=== PATIENT | female | born 1945 | race Caucasian/White ===

== ENCOUNTER 2018-06-06 10:25 | Emergency (ER) | payer OTHER ==
[~2018-06-06] VITALS: Ht 172.7 cm; Wt 61.0 kg
[2018-06-06 10:27] VITALS: Ht 172.7 cm; Wt 61.0 kg
[2018-06-06] MEDS ORDERED: LIDOCAINE/MYLANTA 40 ML BTL PO STA (11:22)
[2018-06-06] MEDS ORDERED: BELLADONNA/PHENOBARBITAL TAB PO STA (11:22)
[2018-06-06] MEDS ORDERED: ATOR20TA38 PO (11:33)
[2018-06-06] MEDS ORDERED: LOSA50TA14 PO (11:33)
[2018-06-06] MEDS ORDERED: CLON0.5T14 PO (11:33)
[2018-06-06] MEDS ORDERED: IOHEXOL 300MG/ML 150 ML BTL ONE (11:59)
[2018-06-06] MEDS ORDERED: SOD CHLORIDE 0.9% 100 ML ONE ×2 (11:59→12:00)
[2018-06-06] MEDS ORDERED: IOHEXOL 100 ML ONE (12:00)
--- NOTE | 2018-06-06 12:46 | ERD ---
ER Documentation Chief Complaint Chief Complaint Complains of abdominal pain since last night HPI This is a 73-year-old female who complains of burning epigastric pain onset last night. She has not eaten today yet. She says the pain is located in the upper stomach that is burning without radiation. No chest pain or shortness of breath. Patient says she is here because she is worried that she has an aortic dissection. The patient says she had a chest x-ray taken 2 weeks ago that showed a widened mediastinum. She has no pain in her back or abdomen below the epigastric region. No chest pain. No shortness of breath or dyspnea on exertion. No melena or nausea vomiting ROS All systems reviewed and are negative except as per history of present illness. Medications Home Meds Active Scripts Hydrocodone/Acetaminophen ([place] 10-325 Tablet) 1 Each Tablet, 1 TAB PO Q6H PRN for PAIN, #7 TAB Prov:PARTH MILES DO 06/06/18 Omeprazole* (Omeprazole*) 40 Mg Capsule.dr, 40 MG PO DAILY, #10 CAP Prov:PARTH MILES DO 06/06/18 Reported Medications Atorvastatin Calcium* (Atorvastatin Calcium*) 20 Mg Tablet, 20 MG PO QHS, #30 TAB 06/06/18 Clonazepam* (Clonazepam*) 0.5 Mg Tablet, 0.5 MG PO HS, TAB 06/06/18 Losartan Potassium* (Losartan Potassium*) 50 Mg Tablet, 50 MG PO DAILY, TAB 06/06/18 Allergies Allergies: Coded Allergies: No Known Allergy (Unverified , 06/06/18) PMhx/Soc Medical and Surgical Hx: pt denies Surgical Hx History of Surgery: No Hx Cardiac Disorders: Yes (HTN) Hx Miscellaneous Medical Probl: Yes (ARTHRITIS) Hx Alcohol Use: No Hx Substance Use: No Hx Tobacco Use: No Smoking Status: Never smoker FmHx Family History: No coronary disease Physical Exam Vitals Vital Signs Date Temp Pulse Resp B/P (MAP) Pulse Ox O2 O2 Flow FiO2 Time Delivery Rate 06/06/18 72 20 128/61 99 Room Air 12:44 (83) 06/06/18 97.9 94 20 129/69 98 10:27 (89) Physical Exam Const: Well-developed, well-nourished Head: Atraumatic, normocephalic Eyes: Normal Conjunctiva, PERRLA, EOMI, normal sclera, no nystagmus ENT: Normal External Ears, Nose and Mouth, moist mucus membranes. Neck: Full range of motion. No meningismus, no lymphadenopathy. Resp: Clear to auscultation bilaterally, no wheezing, rhonchi, rales Cardio: Regular rate and rhythm, no murmurs, S1 S2 present Abd: Soft, moderate epigastric tenderness non distended. Normal bowel sounds, no guarding or rebound, no pulsitile abdominal masses or bruits Skin: No petechiae or rashes, no ecchymosis , no maculopapular rash Back: No midline or flank tenderness Ext: No cyanosis, or edema, FROM x 4, normal inspection, neurova scularly intact x 4 Neur: Awake and alert, STR 5/5 x 4, sensation intact x 4, no focal findings, cerebellum intact Psych: Normal Mood and Affect Result Diagram: 06/06/18 1119 06/06/18 1119 Results 24 hrs Laboratory Tests Test 06/06/18 10:50 06/06/18 11:03 06/06/18 11:19 Urine Color SHELLY Urine Clarity CLOUDY Urine pH 7.0 Urine Specific Union 1.016 Urine Ketones NEGATIVE mg/dL Urine Nitrite NEGATIVE mg/dL Urine Bilirubin NEGATIVE mg/dL Urine Urobilinogen NEGATIVE mg/dL Urine Leukocyte Esterase 3+ Britt/ul Urine Microscopic RBC 16 /HPF Urine Microscopic WBC 143 /HPF Urine Squamous Epithelial Cells MODERATE /HPF Urine Amorphous Crystals FEW /HPF Urine Bacteria FEW /HPF Urine Mucus FEW /HPF Urine Hemoglobin 2+ mg/dL Urine Glucose NEGATIVE mg/dL Urine Total Protein NEGATIVE mg/dl Bedside Urine pH (LAB) 7.0 Bedside Urine Protein (LAB) 1+ Bedside Urine Glucose (UA) Negative Bedside Urine Ketones (LAB) Negative Bedside Urine Blood 2+ Bedside Urine Nitrite (LAB) Negative Bedside Urine Leukocyte Esterase 3+ (L White Blood Count 6.0 10^3/ul Red Blood Count 4.70 10^6/ul Hemoglobin 12.9 g/dl Hematocrit 40.5 % Mean Corpuscular Volume 86.2 fl Mean Corpuscular Hemoglobin 27.4 pg Mean Corpuscular 31.9 g/dl Hemoglobin Concent Red Cell Distribution Width 12.2 % Platelet Count 248 10^3/UL Mean Platelet Volume 9.5 fl Immature Granulocytes % 0.300 % Neutrophils % 70.4 % Lymphocytes % 15.0 % Monocytes % 11.1 % Eosinophils % 2.7 % Basophils % 0.5 % Nucleated Red Blood Cells % 0.0 /100WBC Immature Granulocytes # 0.020 10^3/ul Neutrophils # 4.2 10^3/ul Lymphocytes # 0.9 10^3/ul Monocytes # 0.7 10^3/ul Eosinophils # 0.2 10^3/ul Basophils # 0.0 10^3/ul Nucleated Red Blood Cells # 0.0 10^3/ul Sodium Level 143 mmol/L Potassium Level 3.6 mmol/L Chloride Level 99 mmol/L Carbon Dioxide Level 32 mmol/L Anion Gap 12 Blood Urea Nitrogen 19 mg/dl Creatinine 0.86 mg/dl Est Glomerular Filtrat mL/min Rate mL/min Glucose Level 98 mg/dl Calcium Level 7.5 mg/dl Total Bilirubin 0.4 mg/dl Direct Bilirubin 0.00 mg/dl Indirect Bilirubin 0.4 mg/dl Aspartate Amino 19 IU/L Transf (AST/SGOT) Alanine 16 IU/L Aminotransferase (ALT/SGPT) Alkaline Phosphatase 87 IU/L Troponin I < 0.012 ng/ml Total Protein 7.1 g/dl Albumin 3.8 g/dl Globulin 3.30 g/dl Albumin/Globulin Ratio 1.15 Lipase 36 U/L Current Medications Medications Dose Sig/Porfirio Start Time Status Last (Trade) Ordered Route PRN Stop Time Admin Dose Reason Admin 40 ml ONCE STAT 06/06/18 DC 06/06/18 Miscellaneous PO 11:22 11:34 Medication 06/06/18 11:25 (Gi Cocktail (2)) Belladonna/ 2 tab ONCE STAT 06/06/18 DC 06/06/18 Phenobarbital PO 11:22 11:34 () 06/06/18 11:25 IV Flush 10 ml STK-MED 06/06/18 DC 06/06/18 (NS 10 ml) ONCE .ROUTE 11:59 12:21 06/06/18 12:00 Sodium 100 ml @ ud STK-MED 06/06/18 DC 06/06/18 Chloride ONCE .ROUTE 11:59 12:21 06/06/18 12:00 Iohexol 150 ml STK-MED 06/06/18 DC 06/06/18 (Omnipaque ONCE .ROUTE 11:59 12:21 300mg/ ml) 06/06/18 12:00 IV Flush 10 ml STK-MED 06/06/18 DC (NS 10 ml) ONCE .ROUTE 12:00 06/06/18 12:01 Sodium 100 ml @ ud STK-MED 06/06/18 DC Chloride ONCE .ROUTE 12:00 06/06/18 12:01 Iohexol 100 ml @ ud STK-MED 06/06/18 DC ONCE .ROUTE 12:00 06/06/18 12:01 Procedures/MDM PROCEDURE: CT angiogram of the chest, abdomen and pelvis with contrast CLINICAL INDICATION: Chest and abdominal pain TECHNIQUE: The study was performed utilizing a multidetector CT scanner. Direct spiral 1 mm axial sections were obtained from the thoracic inlet to the pelvis with the use of 100 cc of Omnipaque 350 nonionic intravenous contrast material and reformatted at 3 mm. Sagittal, coronal and 3-D reformations were obtained. The images were reviewed on a PACS workstation. One or more of the following dose reduction techniques were used: Automated exposure control. Adjustment of the mA and/or kV according to patient size. Use of iterative reconstruction technique. DICOM images are available DLP 493.86 mGycm CTDIvol 11.7 and 7.0 mGy COMPARISON: No prior studies are available for comparison. FINDINGS: CTA chest: Aortic atherosclerotic plaque and calcification is visible along with coronary artery calcification partially visualized within the heart. There is no evidence of dissection within the thorax. The ascending aorta is ectatic measuring 3.8 cm. There is a stenotic appearance of the celiac artery origin measuring 4 mm in diameter. There is mild stenosis of the origin of the superior mesenteric artery and of the inferior mesenteric artery as well. No visible stenotic changes seen in the renal arteries bilaterally. No stenotic changes are visible within the pelvic arterial vasculature. No filling defects are seen in the pulmonary arteries to suggest pulmonary embolus. CTA abdomen and pelvis: The abdominal aorta is normal in caliber with no evidence of aneurysm or dissection. Aortic atherosclerotic plaque and calcification is visible along with pelvic arterial atherosclerotic calcifications. There is no hemodynamically significant stenosis or occlusion involving the vessels of the abdomen and pelvis. There are no inflammatory changes to suggest vasculitis. CT chest: There is mild bibasilar atelectasis and scarring. There is no lung consolidation or pleural effusion or pneumothorax. There is no suspicious nodule or mass. Bilateral mild airways wall thickening is seen without airways occlusion. There are no enlarged axillary or mediastinal lymph nodes. The heart size is normal without evidence for pericardial thickening or effusion. Degenerative changes are seen with no acute osseous abnormality. CT abdomen and pelvis: There is normal density of the liver with no evidence of enhancing lesion. There is no biliary ductal dilatation. The portal vein is intact without thrombus. The gallbladder is unremarkable without inflammation. The spleen is normal in size and homogeneous in density. The pancreas is within normal limits without focal lesion or surrounding inflammation. The adrenal glands are symmetric and normal. The kidneys enhance symmetrically without evidence of focal abnormality, inflammation, or hydronephrosis. No renal calculus or obstructive uropathy or mass lesion is seen. There are no enlarged lymph nodes in the abdomen and pelvis. There is no bowel obstruction or focal bowel wall inflammation. There is a moderately diffusely fecal filled colon. The appendix is not visualized. Degenerative changes are seen in the lumbar spine with no acute osseous abnormality. There is an old healed right inferior pubic ramus fracture. There is a right ovarian cyst that measures 3 cm. There is a left ovarian cyst that measures 3.5 cm. The uterus is grossly unremarkable. IMPRESSION: There is diffuse aortic atherosclerosis without dissection. There is ascending aortic ectasia. 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 Mild bibasilar atelectasis is present with otherwise no acute process. Fecal filled colon. Bilateral ovarian cysts are present which can be correlated with urinalysis. Old, healed right inferior pubic ramus fracture. RPTAT: AA .Raymond Quick MD, MD Date Time Electronically viewed and signed by .Raymond Quick MD, MD on 06/06/2018 12:50 .J/ CC: PARTH MILES DO [phone] Patient's pain is completely relieved with GI cocktail. I spoke with Dr. Perales vascular surgery. The patient is safe for discharge as her clinical presentation does not match this which I agree with a 20 get some follow-up. I discussed this with the family that the process of vascular disease in the celiac and SMA will be gradual and she will developed some postprandial pain. Going to follow-up with Dr. Perales for early intervention Departure Diagnosis: Primary Impression: Gastritis Gastritis type: unspecified gastritis Chronicity: acute Gastritis bleeding: presence of bleeding unspecified Qualified Codes: K29.00 - Acute gastritis without bleeding Additional Impression: Abdominal pain Abdominal location: epigastric Qualified Codes: R10.13 - Epigastric pain Condition: Stable PARTH MILES DO Jun 06, 2018 12:46
[2018-06-06] MEDS ORDERED: HYDR-3980 PO (14:44)
[2018-06-06] MEDS ORDERED: OMEP40CA6 PO (14:44)
[2018-06-06 15:10] VITALS: BP 124/72; PULSE 87; RESP 20
== END 2018-06-06 15:05 | disposition home or self-care (01) ==
LOC: E/R 10:25
DX: K29.00 Acute gastritis without bleeding (principal); I10 Essential (primary) hypertension
CPT/HCPCS: 71260; 74177; 80053; 81001; 83690; 84484; 85025; Q9967; Z7610; 36415; 81003

== ENCOUNTER 2018-06-17 09:44 | Day surgery (SDC) | payer OTHER ==
[~2018-06-17] VITALS: Ht 165.1 cm; Wt 69.0 kg
[~2018-06-17 09:44] MED LIST: ATOR20TA38 PO; CLON0.5T14 PO; HYDR-3980 PO; LOSA50TA14 PO; OMEP40CA6 PO
[2018-06-17 11:05] VITALS: Ht 165.1 cm; Wt 69.0 kg
[2018-06-17 11:36] VITALS: BP 145/72; PULSE 77; RESP 18
--- NOTE | 2018-06-17 11:36 | PREAC ---
Date/Time of Note Date/Time of Note DATE: 06/17/18 TIME: 11:35 Anesthesia Eval and Record Evaluation Time Pre-Procedure Interview DATE: 06/17/18 TIME: 11:35 Age 73 Sex female NPO: 8 hrs Preoperative diagnosis screening Planned procedure colonoscopy Past Medical History Past Medical History: Includes Cardio: HTN, Dyslipidemia Surgery & Anesthesia Issues No known issue Meds Anticoagulation: No Beta Jim within 24 hr: No Reason Beta Jim not given: Pt. not on B-Jim Active Scripts Hydrocodone/Acetaminophen ([place] 10-325 Tablet) 1 Each Tablet, 1 TAB PO Q6H PRN for PAIN, #7 TAB Prov:PARTH MILES DO 06/06/18 Omeprazole* (Omeprazole*) 40 Mg Capsule.dr, 40 MG PO DAILY, #10 CAP Prov:VASU MILESSTGUYS Ariana DO 06/06/18 Reported Medications Atorvastatin Calcium* (Atorvastatin Calcium*) 20 Mg Tablet, 20 MG PO QHS, #30 TAB 06/06/18 Clonazepam* (Clonazepam*) 0.5 Mg Tablet, 0.5 MG PO HS, TAB 06/06/18 Losartan Potassium* (Losartan Potassium*) 50 Mg Tablet, 50 MG PO DAILY, TAB 06/06/18 Meds reviewed: Yes Allergies Coded Allergies: No Known Allergy (Unverified , 06/06/18) Allergies Reviewed: Yes Labs/Studies Labs Reviewed: Reviewed by anesthesiologist test: N/A Pre-procedure Exam Airway: Adequate mouth opening, Adequate thyromental dist Mallampati: Mallampati II Teeth: Normal Lung: Normal Heart: Normal ASA Physical Status ASA physical status: 2 Emergency: None Planned Anesthetic General/MAC: MAC Planned Pain Management Parenteral pain med Pre-operative Attestations Prior to commencing anesthesia and surgery, the patient was re-evaluated, there was verification of: *The patient's identity *The results of appropriate recent lab work and preoperative vital signs *The above evaluation not changing prior to induction *Anesthetic plan, risk benefits, alternative and complications discussed with patient/family; questions answered; patient/family understands, accepts and wishes to proceed. Saulo Leblanc M.D. Jun 17, 2018 11:36
[2018-06-17] MEDS ORDERED: IPRATROPIUM (NEB) 0.5 MG/2.5 ML AMP HHN PRN (12:00)
[2018-06-17] MEDS ORDERED: HYDROmorphONE 1 MG/5 ML IV SYRINGE IV PRN ×3 (12:00)
[2018-06-17] MEDS ORDERED: ALBUTEROL 0.083% (NEB) 2.5 MG/3 ML AMP HHN PRN (12:00)
[2018-06-17] MEDS ORDERED: EPHEDrine SULFATE 50 MG/5 ML SYG IV PRN (12:00)
[2018-06-17] MEDS ORDERED: MEPERIDINE 25 MG INJ IV PRN (12:00)
[2018-06-17] MEDS ORDERED: ONDANSETRON 4 MG INJ IV PRN (12:00)
[2018-06-17] MEDS ORDERED: FENTAnyl 50 MCG/ML VIAL IV PRN ×3 (12:00)
[2018-06-17] MEDS ORDERED: LABETALOL HCL 20MG INJ IV PRN (12:00)
[2018-06-17] MEDS ORDERED: DIPHENHYDRAMINE 50 MG INJ IV PRN (12:00)
[2018-06-17] MEDS ORDERED: OXYCODONE/ACETAMINOPHEN (5/325) TAB PO PRN ×2 (12:00)
[2018-06-17] MEDS ORDERED: MIDAZOLAM 1 MG/ML 2 ML INJ IV PRN (12:00)
[2018-06-17] MEDS ORDERED: hydrALAzine 20 MG INJ IV PRN (12:00)
[2018-06-17] MEDS ORDERED: TRIMETHOBENZAMIDE 100 MG/ML VIAL IM PRN (12:00)
--- NOTE | 2018-06-17 12:12 | PAC ---
Date/Time of Note Date/Time of Note DATE: 06/17/18 TIME: 12:11 Post-Anesthesia Notes Post-Anesthesia Note Last documented vital signs hr:76 rr: 14 bp:116/76 Temp: 98.4 Spo2:99% Activity: WNL Respiratory function: WNL Cardiovascular function: WNL Mental status: Baseline Pain reasonably controlled: Yes Hydration appropriate: Yes Nausea/Vomiting absent: Yes Saulo Leblanc M.D. Jun 17, 2018 12:12
[2018-06-17 12:46] VITALS: BP 139/66; PULSE 64; RESP 16
--- NOTE | 2018-06-18 13:34 | CONS ---
DATE OF ADMISSION: 06/17/2018 DATE OF CONSULTATION: PATIENT NAME: BRANDIE CANTOR TYPE OF CONSULTATION: Preoperative gastroenterology. Dear Dr. Torre: I thank you very much for this kind referral. HISTORY OF PRESENT ILLNESS: Ms. Brandie Cantor is a 73-year-old female patient who has been referred to me for further evaluation of change in the bowel habit. The patient has history of colon polyp. She has family history of colon cancer. Appetite is good. No weight loss. No upper abdominal pain , nausea or vomiting. On baby aspirin a day. No history of gallstones or liver disease. PAST MEDICAL HISTORY: She is hypertensive. Not a diabetic. No heart disease, lung problem or kidne y disease. Has hyperlipidemia. SOCIAL HISTORY: Nonsmoker. No alcohol abuse. FAMILY HISTORY: The patient's sister had colon cancer. ALLERGIES: NO ALLERGIES. MEDICATIONS: 1. Losartan. 2. Atorvastatin. 3. Aspirin 81 mg. PHYSICAL EXAMINATION: VITAL SIGNS: She is 5 feet, 3 inches tall and weighs 137 pounds. HEART: Normal heart sounds. LUNGS: Clear. ABDOMEN: Soft. No masses. Normal bowel sounds. NEUROLOGIC: Normal. IMPRESSION: 1. Change in the bowel habit. 2. History of colon polyp. 3. Family history of colon cancer. 4. Hypertension. 5. Hyperlipidemia. 6. The patient is on baby aspirin a day. PLAN: 1. Screening colonoscopy. 2. Because of the patient's age, she needs monitored anesthesia care. The procedures and possible complications are well explained to the patient and her daughter. They u nderstand and consent to the procedure. I thank you once again. With warmest personal regards, Dictated By: MARY JACOBS/TUCKER Conf#: [id number] DID#: [id number]
== END 2018-06-17 13:30 | disposition home or self-care (01) ==
LOC: GIL 09:44
PROVIDERS: ATTEND Internal Medicine Gastroenterology
DX: Z12.11 Encounter for screening for malignant neoplasm of colon (principal); K64.8 Other hemorrhoids; I10 Essential (primary) hypertension; E78.5 Hyperlipidemia, unspecified

== ENCOUNTER 2018-09-08 17:21 | Emergency (ER) | payer OTHER ==
[~2018-09-08] VITALS: Wt 67.0 kg
[2018-09-08 17:24] VITALS: BP 138/65; PULSE 98; RESP 18
[2018-09-08] MEDS ORDERED: CEPH-443 PO (17:59)
[2018-09-08] MEDS ORDERED: SULF1TAB31 PO (17:59)
[2018-09-08] MEDS ORDERED: HC30CR25 TOP (17:59)
[2018-09-08] MEDS ORDERED: DIPHENHYDRAMINE 25 MG CAP PO ONE (18:00)
[2018-09-08] MEDS ORDERED: DEXAMETHASONE 10 MG/ML 1 ML INJ IM ONE (18:00)
--- NOTE | 2018-09-08 21:25 | ERD ---
ER Documentation Chief Complaint Chief Complaint RASH SINCE YESTERDAY HPI 73-year-old female brought in by her daughter who is assisting with translation with complaints of rash to the left upper extremity for the past 1 day. The daughter states she believes that the patient sustained an insect bite in her sleep. There is surrounding erythema which has been increasing in size over the past 24 hours. No medication was given for relief of symptoms. Associated symptoms include itching. The patient denies any fevers, chills, shortness of breath or feelings of her throat closing. ROS All systems reviewed and are negative except as per history of present illness. Medications Home Meds Active Scripts Hydrocortisone* Topical (Hydrocortisone* Topical) 2.5%-28.3 Gm Cream..g., 1 APPLIC TOP BID, #1 TUB Prov:MARIA E LEON PA-C 09/08/18 Sulfamethoxazole/Trimethoprim* (Bactrim Ds* Tablet) 1 Each Tablet, 1 TAB PO BID, #14 TAB Prov:MARIA E LEON PA-C 09/08/18 Cephalexin* (Keflex*) 500 Mg Capsule, 500 MG PO TID for 7 Days, CAP Prov:MARIA E LEON PA-C 09/08/18 Hydrocodone/Acetaminophen ([place] 10-325 Tablet) 1 Each Tablet, 1 TAB PO Q6H PRN for PAIN, #7 TAB Prov:PARTH MILES DO 06/06/18 Omeprazole* (Omeprazole*) 40 Mg Capsule.dr, 40 MG PO DAILY, #10 CAP Prov:PARTH MILES DO 06/06/18 Reported Medications Atorvastatin Calcium* (Atorvastatin Calcium*) 20 Mg Tablet, 20 MG PO QHS, #30 TAB 06/06/18 Clonazepam* (Clonazepam*) 0.5 Mg Tablet, 0.5 MG PO HS, TAB 06/06/18 Losartan Potassium* (Losartan Potassium*) 50 Mg Tablet, 50 MG PO DAILY, TAB 06/06/18 Allergies Allergies: Coded Allergies: No Known Allergy (Unverified , 09/08/18) PMhx/Soc History of Surgery: No Anesthesia Reaction: No Hx Neurological Disorder: No Hx Respiratory Disorders: No Hx Cardiac Disorders: Yes (HTN) Hx Psychiatric Problems: No Hx Miscellaneous Medical Probl: No Hx Alcohol Use: No Hx Substance Use: No Hx Tobacco Use: No FmHx Family History: No diabetes Physical Exam Vitals Vital Signs Date Temp Pulse Resp B/P (MAP) Pulse Ox O2 O2 Flow FiO2 Time Delivery Rate 09/08/18 98.2 98 18 138/65 99 17:24 (89) Physical Exam Const: No acute distress Head: Atraumatic Eyes: Normal Conjunctiva ENT: Normal External Ears, Nose and Mouth. Posterior pharynx is clear. Airway is patent. Uvula is midline. Neck: Full range of motion. No meningismus. Resp: Clear to auscultation bilaterally Cardio: Regular rate and rhythm, no murmurs Skin: Localized erythema noted to the left upper extremity with a central pustule. There is no crepitus on palpation. No lymphatic streaking noted. Back: No midline or flank tenderness Ext: No cyanosis, or edema Neur: Awake and alert Psych: Normal Mood and Affect Results 24 hrs Current Medications Medications Dose Sig/Porfirio Start Time Status Last (Trade) Ordered Route PRN Stop Time Admin Dose Reason Admin 10 mg ONCE ONCE 09/08/18 DC 09/08/18 Dexamethasone IM 18:00 18:13 (Decadron) 09/08/18 18:01 25 mg ONCE ONCE 09/08/18 DC 09/08/18 Diphenhydrami PO 18:00 18:13 ne HCl 09/08/18 18:01 (Benadryl) Procedures/MDM 73-year-old female presented to the emergency department with signs and symptoms most consistent with allergic reaction secondary to insect bite. There is also significant erythema and so patient will be treated as an outpatient for cellulitis. Low suspicion for necrotizing fasciitis. The patient is nontoxic and well-appearing and afebrile. No evidence of life-threatening or emergent pathology. She is stable and appropriate for discharge and further outpatient management with prescriptions. Patient was in agreement with the diagnosis, plan, need for follow-up, return precautions. Departure Diagnosis: Primary Impression: Rash and other nonspecific skin eruption Condition: Fair Patient Instructions: Allergic Reaction, Insect (Local) Referrals: COMMUNITY CLINICS YOU HAVE RECEIVED A MEDICAL SCREENING EXAM AND THE RESULTS INDICATE THAT YOU DO NOT HAVE A CONDITION THAT REQUIRES URGENT TREATMENT IN THE EMERGENCY DEPARTMENT. FURTHER EVALUATION AND TREATMENT OF YOUR CONDITION CAN WAIT UNTIL YOU ARE SEEN IN YOUR DOCTORS OFFICE WITHIN THE NEXT 1-2 DAYS. IT IS YOUR RESPONSIBILITY TO MAKE AN APPOINTMENT FOR FOLOW-UP CARE. IF YOU HAVE A PRIMARY DOCTOR --you should call your primary doctor and schedule an appointment IF YOU DO NOT HAVE A PRIMARY DOCTOR YOU CAN CALL OUR PHYSICIAN REFERRAL HOTLINE AT IF YOU CAN NOT AFFORD TO SEE A PHYSICIAN YOU CAN CHOSE FROM THE FOLLOWING [facility] [address] [facility] [address] [facility] [facility] [address] [facility] [address]. [facility] [address] [facility]. [facility] [address] Additional Instructions: Call your primary care doctor TOMORROW for an appointment during the next 1-2 days.See the doctor sooner or return here if your condition worsens before your appointment time. MARIA E LEON PA-C September 08, 2018 21:25
== END 2018-09-08 18:20 | disposition home or self-care (01) ==
LOC: FTE 17:21
DX: R21 Rash and other nonspecific skin eruption (principal); I10 Essential (primary) hypertension
CPT/HCPCS: 96372; J1100; Z7502; Z7610